=== PATIENT | male | born 1975 | race Caucasian/White ===

== ENCOUNTER 2020-09-28 09:43 | Outpatient (REF) | payer MEDICAID, SELFPAY ==
--- NOTE | ~2020-09-28 | CT_ITS ---
EXAMINATION: CT CHEST WITH CONTRAST CLINICAL INFORMATION: Lymphadenopathy. COMPARISON: CT dated 07/21/2018 and 10/01/2017. Chest radiograph dated 06/07/2019. TECHNIQUE: Multidetector volumetric CT imaging of the chest was obtained after the administration of 65 mL of Omnipaque 350 intravenous contrast without immediate adverse reactions. Axial MIP volume rendering provided. Sagittal and coronal reformatted images were obtained. This CT examination was performed using dose optimization techniques as appropriate, variously including the following: *Automated exposure control *Adjustment of mA and/or kV according to patient size (this includes techniques or standardized protocols for targeted exams where dose is matched to indication/reason for exam; i.e. extremities or head) *Use of iterative reconstruction technique DLP: 251 mGy-cm FINDINGS: FORENSIC ECONOMIST: Rounded calcified pulmonary nodule over the left lung is unchanged. Lung volumes are borderline low. LUNGS: The 1.5 x 1.6 cm solid peripherally calcified nodule in the left mid lung is unchanged in size by my measurement as compared to 07/21/2018. Multiple additional calcified pulmonary nodules are identified. No suspicious noncalcified pulmonary nodules are identified. Central airways are clear. Mild dependent atelectasis. No airspace consolidation. MEDIASTINUM: Heart is normal in size. No pericardial effusion. No mediastinal adenopathy. Subcarinal lymph node measures 1 cm in short axis, unchanged from prior and within normal limits. Calcified lymph nodes are present in the left hilum. No hilar adenopathy. Thyroid gland is normal in size and attenuation. PLEURA: There is no pleural effusion. No pleural mass or thickening. AXILLA: No lymphadenopathy. UPPER ABDOMEN: A coarse dystrophic calcification is present within the right hepatic lobe posteriorly, unchanged. No suspicious hepatic lesions. No acute intra-abdominal abnormalities are identified. OSSEOUS STRUCTURES: Mild/moderate multilevel degenerative spondylosis is present in the thoracic spine. There is mild anterior wedging of vertebral bodies at the T11 and T12 levels. No acute osseous findings. CT/CT chest w con IMPRESSION: 1. No acute pulmonary findings. 2. No mediastinal or hilar adenopathy. Subcarinal lymph node is unchanged from prior and within normal limits in size. Calcified left hilar lymph nodes are again noted. 3. Multiple calcified pulmonary nodules measuring up to 1.6 cm in diameter, most consistent with prior granulomatous infection.
[2020-09-28] MEDS: iohexoL 350 MG/ML 100 ML INFUS..BTL IV (11:19)
== END 2020-09-28 09:44 | disposition home or self-care (01) ==
LOC: HO.CT 09:43
PROVIDERS: Visit Provider Internal Medicine
DX: R59.0 Localized enlarged lymph nodes (principal); R91.8 Other nonspecific abnormal finding of lung field
CPT/HCPCS: 71260; Q9967

== ENCOUNTER 2022-09-08 16:46 | Emergency (ER) | payer MEDICAID, SELFPAY ==
--- NOTE | ~2022-09-08 | CT_ITS ---
EXAMINATION: CT ABDOMEN AND PELVIS WITHOUT CONTRAST CLINICAL INFORMATION: Right flank pain. COMPARISON: CT of the abdomen and pelvis of 08/25/2017 and abdominal ultrasound of 12/09/2018. Selected images of the chest CT of 09/28/2020. TECHNIQUE: Multidetector volumetric imaging was performed from the superior aspect of the liver through the pubic symphysis. Sagittal and coronal reformatted images were obtained on the technologist's workstation. This CT examination was performed using dose optimization techniques as appropriate, variously including the following: *Automated exposure control *Adjustment of mA and/or kV according to patient size (this includes techniques or standardized protocols for targeted exams where dose is matched to indication/reason for exam; i.e. extremities or head) *Use of iterative reconstruction technique DLP: 1253 mGy-cm FINDINGS: LUNG BASES: Partially visualized nodular density measuring 0.8 cm (series 3, image 1) represents a portion of a calcified nodule seen in the inferior left upper lobe on CT scan of 09/28/2020. The lung bases are otherwise unremarkable. No pleural or pericardial effusion. LIVER, GALLBLADDER, AND BILIARY TREE: The liver is in upper limits of normal for size. Mild liver contour nodularity is noted concerning for cirrhotic morphology of the liver. No focal liver lesion within the limits of noncontrast study. A 0.7 cm coarse calcification is noted in the right hepatic lobe. No biliary ductal dilatation. The gallbladder is moderately contracted. No radiopaque gallstones are noted. No obvious pericholecystic inflammatory changes. PANCREAS: Unremarkable. SPLEEN: Unremarkable. ADRENAL GLANDS: Unremarkable. KIDNEYS AND URETERS: The kidneys are normal in size, shape and attenuation. A 0.4 cm nonobstructing calculus is noted in the lower pole of the right kidney. No additional radiopaque calculi are seen in the kidneys and ureters. No evidence of hydroureteronephrosis or perinephric stranding bilaterally. BLADDER: Underdistended and therefore not optimally evaluated; however, there is no evidence of radiopaque calculi. GASTROINTESTINAL TRACT: The stomach is significantly distended with ingested material. No abnormal small bowel dilatation. The colon is normal in caliber. No evidence of colonic wall thickening or pericolonic fat stranding. Mrbaxrfi-rz-mltde stool burden in the colon. An appendix is normal. PERITONEUM AND RETROPERITONEUM: There is no evidence of free intraperitoneal air or fluid. Mild stranding is noted in the right paracolic gutter inferior to the inferior tip of the liver (series 3, image 42 of 102, series 7, image 65); this is a nonspecific finding. ABDOMINAL WALL: No significant hernia is appreciated. LYMPH NODES: No evidence of pathologically-enlarged lymph nodes. VASCULAR: The aortoiliac vessels are normal in caliber. Minimal calcific atherosclerosis of the distal aorta and iliac arteries. PELVIC VISCERA: Unremarkable. OSSEOUS STRUCTURES: No acute or suspicious osseous lesions. Multilevel degenerative changes in the visualized spine. CT/CT abdomen pelvis wo IV con IMPRESSION: 1. A 0.4 cm nonobstructing calculus in the lower pole of the right kidney. No additional radiopaque urinary tract calculi are noted. No evidence of hydroureteronephrosis or perinephric stranding bilaterally. 2. Normal appendix. 3. Rpcqsttd-yo-ivdvg stool burden in the colon. No evidence of abnormal bowel dilatation or bowel obstruction. 4. Cirrhotic morphology of the liver. Mild stranding in the right paracolic gutter inferior to the inferior tip of the liver is a nonspecific finding and could be related to suspected cirrhosis. Recommend clinical correlation and correlation with lab values. 5. No acute or suspicious osseous lesions. 6. Multilevel degenerative changes in the visualized spine. Fleischner guidelines were followed.
[2022-09-08 16:51] VITALS: BP 160/74; PULSE 88; RESP 20; TEMP 37.2; O2SAT 95; BMI 54.6
--- NOTE | 2022-09-08 16:51 | ED_ITS ---
HPI - General Adult General Chief complaint: Abdominal Pain Stated complaint: right sided abd pain Time Seen by Provider: 09/08/22 21:32 Related Data Previous Rx's ?Medication ?Instructions ?Recorded polyethylene glycol 3350 17 17 g PO DAILY #119 grams 09/08/22 gram/dose oral powder (Miralax) Allergies Allergy/AdvReac Type Severity Reaction Status Date / Time No Known Allergies Allergy Unverified 02/25/20 17:10 [facility] Social History Social History Advance Directives: No Advance Directives Information Provided: No Physical Exam ED Vital Signs: BMI result Body Mass Index 54.6 Course Course Course Narrative: This is an RME: Additional HPI, ROS, PE not included below will be deferred to primary provider. 47-year-old male history of obesity presents with right-sided flank pain x2 days. Reports pain is severe in nature, nonradiating. Denies urinary symptoms, fevers, chills, nausea, vomiting, abdominal pain, changes in bowel habits, chest pain, shortness of breath. No trauma. On exam patient appears uncomfortable with discomfort with palpation to right flank region. Vital signs stable Plan labs, urine, abd and pelvis ct Medical Decision Making Lab Data 09/08/22 17:44 09/08/22 17:44 Labs: Lab Results 09/08/22 09/08/22 Range/Units 17:44 21:42 WBC 9.9 (4.8-10.8) X10*3/uL RBC 5.21 (4.60-5.80) X10*6/uL Hgb 13.7 L (14.0-18.0) g/dl Hct 42.4 (42.0-52.0) % MCV 81.4 (80.0-98.0) fL MCH 26.3 L (27.0-33.0) pg MCHC 32.3 (31.0-36.0) g/dl RDW 13.6 (11.0-16.0) % Plt Count 148 L (160-400) X10*3/uL MPV 12.3 (9.4-12.4) fL Immature Gran % (Auto) 0.2 (0.0-0.4) % Neut % (Auto) 66.9 (45-73) % Lymph % (Auto) 21.1 (20-40) % [place] % (Auto) 8.0 (2-11) % Eos % (Auto) 3.5 (0-4) % Baso % (Auto) 0.3 (0-2) % Lymph # (Auto) 2.1 (1.2-4.9) X10*3/uL [place] # (Auto) 0.8 (0.1-1.2) X10*3/uL Eos # (Auto) 0.4 (0.0-0.4) X10*3/uL Baso # (Auto) 0.0 (0.0-0.2) X10*3/uL Abs Immat Gran (auto) 0.02 (0.00-0.03) X10*3/uL Absolute Neuts (auto) 6.6 (2.0-8.3) x10*3/uL Absolute Nucleated RBC 0.000 (0.0-0.012) X10*3/uL Nucleated RBC % (auto) 0.0 (0.0-0.2) /100WBC Sodium 138 (135-145) mmol/L Potassium 4.4 (3.3-5.1) mmol/L Chloride 101 (96-108) mmol/L Carbon Dioxide 29 (22-29) mmol/L Anion Gap 12 (12-20) BUN 18 H (9-16) mg/dL Creatinine 1.00 (0.5-1.4) mg/dL Estim Creat Clear Calc 115.1 Estimated GFR > 60 Random Glucose 123 H (60-115) mg/dL Calcium 9.3 (8.4-10.2) mg/dL Magnesium 2.0 (1.6-2.6) mg/dL Total Bilirubin 0.6 (0.0-1.0) mg/dL AST 19 (5-37) U/L ALT 19 (0-40) U/L Alkaline Phosphatase 100 (39-117) U/L Total Protein 7.6 (6.5-8.0) g/dL Albumin 4.1 (3.5-5.0) g/dL Lipase 16 (8-78) U/L Urine Color Yellow Urine Appearance Clear Urine pH 7.0 (5.0-9.0) Ur Specific [place] 1.015 (1.005-1.025) Urine Protein Negative (Neg-Trace) mg/dL Urine Glucose (UA) Negative (Negative) mg/dL Urine Ketones Negative (Negative) mg/dL Urine Blood Negative (Negative) Urine Nitrite Negative (Negative) Ur Leukocyte Esterase Negative (Negative) Discharge Plan Discharge Clinical Impression: Abdominal pain, Constipation Patient Disposition: Home, Self-Care Instructions: Constipation (DC), Acute Abdominal Pain (DC) Prescriptions: New polyethylene glycol 3350 [Miralax] 17 gram/dose powder 17 g PO DAILY Qty: 119 0RF Referrals: Physician,None [Primary Care Provider] - Interventions: ED Discharge Assessment Last Done: 09/09/22 00:42 Discharge Date/Time: 09/09/22 00:43 Print Language: Chinese
[2022-09-08 17:48] LABS: MANUAL DIFF FLAG NO
[2022-09-08 17:49] LABS: Basophils Percent Auto 0.3 % (0-2); Eosinophils Absolute Auto 0.4 X10*3/uL (0.0-0.4); Eosinophils Percent Auto 3.5 % (0-4); Hematocrit 42.4 % (42.0-52.0); Hemoglobin 13.7 g/dl (14.0-18.0); Imm Gran Abs Auto 0.02 X10*3/uL (0.00-0.03); Imm Gran Pct Auto 0.2 % (0.0-0.4); Lymphocytes Absolute Auto 2.1 X10*3/uL (1.2-4.9); Lymphocytes Percent Auto 21.1 % (20-40); Mean Corpuscular HGB Conc 32.3 g/dl (31.0-36.0); Mean Corpuscular Hemoglobin 26.3 pg (27.0-33.0); Mean Corpuscular Volume 81.4 fL (80.0-98.0); Mean Platelet Volume 12.3 fL (9.4-12.4); Monocytes Absolute Auto 0.8 X10*3/uL (0.1-1.2); Neutrophils Absolute Auto 6.6 x10*3/uL (2.0-8.3); Neutrophils Percent Auto 66.9 % (45-73); Platelet Count 148 X10*3/uL (160-400); Red Blood Count 5.21 X10*6/uL (4.60-5.80); Red Cell Distribution Width 13.6 % (11.0-16.0); White Blood Count 9.9 X10*3/uL (4.8-10.8)
[2022-09-08 18:11] LABS: Alanine Aminotransferase 19 U/L (0-40); Albumin Level 4.1 g/dL (3.5-5.0); Alkaline Phosphatase 100 U/L (39-117); Anion Gap 12 (12-20); Aspartate Amino Transferase 19 U/L (5-37); Bilirubin Total 0.6 mg/dL (0.0-1.0); Blood Urea Nitrogen 18 mg/dL (9-16); Calcium 9.3 mg/dL (8.4-10.2); Carbon Dioxide 29 mmol/L (22-29); Chloride 101 mmol/L (96-108); Creatinine Clr Calc Pharmacy 115.1; Estimated Glomerular Filt Rate > 60; Glucose Random 123 mg/dL (60-115); Lipase 16 U/L (8-78); Potassium 4.4 mmol/L (3.3-5.1); Sodium 138 mmol/L (135-145); Total Protein 7.6 g/dL (6.5-8.0)
[2022-09-08 21:49] LABS: Appearance Urine Clear; Color Urine Yellow; Glucose Urine UA Negative (Negative); Leukocyte Esterase Urine Negative (Negative); Nitrite Urine Negative (Negative); Specific Gravity - Urine 1.015 (1.005-1.025); Urine Blood Negative (Negative); Urine Ketones Negative (Negative); Urine Protein Negative (Neg-Trace)
--- NOTE | 2022-09-08 22:45 | ED_ITS ---
HPI - Abdominal Pain General Chief Complaint: Abdominal Pain Stated Complaint: right sided abd pain Time Seen by Provider: 09/08/22 21:32 History of Present Illness HPI narrative: Patient is 39 years old presents today with having abdominal pains for the last 2 days over the right flank area. Positive fullness. There is no bowel urinary incontinence. There is no fever no chills. No pain on urination. No history of kidney stones in the past. Patient is from home. Denies having a good bowel movement for last 2 days. Is passing gas. No abdominal surgery done in the past. Related Data Previous Rx's Medication Instructions Recorded polyethylene glycol 3350 17 17 g PO DAILY #119 grams 09/08/22 gram/dose oral powder (Miralax) Allergies Allergy/AdvReac Type Severity Reaction Status Date / Time No Known Allergies Allergy Unverified 02/25/20 17:10 Review of Systems Review of Systems Positive abdominal pain on the right side Yes all other systems are reviewed and are negative [facility] Past Medical History Attestation statement: The following information was validated with the patient. Social History Social History Advance Directives: No Advance Directives Information Provided: No Physical Exam ED Vital Signs: Vital Signs - 24 hr 09/08/22 16:51 Temperature 98.9 F Pulse Rate 88 Respiratory Rate 20 Blood Pressure 160/74 H Pulse Oximetry 95 Oxygen Delivery Method Room Air BMI result Body Mass Index 54.6 Appearance: Alert. Oriented X3. No acute distress. Eyes: Pupils equal, round and reactive to light. ENT: Pharynx normal. Neck: Normal inspection. Neck supple. No lymph nodes noted. No crepitus CVS: Normal heart rate and rhythm. Pulses normal. Normal S1 and S2 Respiratory: No respiratory distress. Breath sounds normal. No Wheezing. No rales Abdomen: Soft and nontender. No rigidity. No distention. good BS x4 Skin: Skin warm and dry. Normal skin color. Normal skin turgor. Extremities: No lower extremity edema. Neurovascular intact to all extremities. No Lacerations. No Rash Neuro: Oriented X 3. No motor deficit. No sensory deficit. Moving all extermities. No slurred speech Medical Decision Making Medical Decision Making MDM Narrative: Patient's lab showed a normal white count. LFTs were normal. Electrolytes unremarkable. There is no evidence of biliary disease. CT scan of the abdomen pelvis showed no evidence of obstruction, abscess, perforation. It did show signs of a large amount of stool. Patient most likely constipated. Will prescribe patient has some MiraLax. There is no evidence for abdominal aortic aneurysm. Patient's urine is negative for infection. Patient is well- appearing. Will discharge patient home. Differential Diagnosis Differential Diagnoses: The differential diagnosis associated with the presentation includes Obstruction, abscess, perforation, appendicitis, diverticulitis, AAA, constipation Lab Data MDM Lab Attestation statement: I reviewed the patient's lab results. 09/08/22 17:44 09/08/22 17:44 Labs: Lab Results 09/08/22 09/08/22 09/08/22 Range/Units 17:44 17:44 21:42 WBC 9.9 (4.8-10.8) X10*3/uL RBC 5.21 (4.60-5.80) X10*6/uL Hgb 13.7 L (14.0-18.0) g/dl Hct 42.4 (42.0-52.0) % MCV 81.4 (80.0-98.0) fL MCH 26.3 L (27.0-33.0) pg MCHC 32.3 (31.0-36.0) g/dl RDW 13.6 (11.0-16.0) % Plt Count 148 L (160-400) X10*3/uL MPV 12.3 (9.4-12.4) fL Immature Gran % (Auto) 0.2 (0.0-0.4) % Neut % (Auto) 66.9 (45-73) % Lymph % (Auto) 21.1 (20-40) % [place] % (Auto) 8.0 (2-11) % Eos % (Auto) 3.5 (0-4) % Baso % (Auto) 0.3 (0-2) % Lymph # (Auto) 2.1 (1.2-4.9) X10*3/uL [place] # (Auto) 0.8 (0.1-1.2) X10*3/uL Eos # (Auto) 0.4 (0.0-0.4) X10*3/uL Baso # (Auto) 0.0 (0.0-0.2) X10*3/uL Abs Immat Gran (auto) 0.02 (0.00-0.03) X10*3/uL Absolute Neuts (auto) 6.6 (2.0-8.3) x10*3/uL Absolute Nucleated RBC 0.000 (0.0-0.012) X10*3/uL Nucleated RBC % (auto) 0.0 (0.0-0.2) /100WBC Sodium 138 (135-145) mmol/L Potassium 4.4 (3.3-5.1) mmol/L Chloride 101 (96-108) mmol/L Carbon Dioxide 29 (22-29) mmol/L Anion Gap 12 (12-20) BUN 18 H (9-16) mg/dL Creatinine 1.00 (0.5-1.4) mg/dL Estim Creat Clear Calc 115.1 Estimated GFR > 60 Random Glucose 123 H (60-115) mg/dL Calcium 9.3 (8.4-10.2) mg/dL Magnesium 2.0 (1.6-2.6) mg/dL Total Bilirubin 0.6 (0.0-1.0) mg/dL AST 19 (5-37) U/L ALT 19 (0-40) U/L Alkaline Phosphatase 100 (39-117) U/L Total Protein 7.6 (6.5-8.0) g/dL Albumin 4.1 (3.5-5.0) g/dL Lipase 16 (8-78) U/L Urine Color Yellow Urine Appearance Clear Urine pH 7.0 (5.0-9.0) Ur Specific [place] 1.015 (1.005-1.025) Urine Protein Negative (Neg-Trace) mg/dL Urine Glucose (UA) Negative (Negative) mg/dL Urine Ketones Negative (Negative) mg/dL Urine Blood Negative (Negative) Urine Nitrite Negative (Negative) Ur Leukocyte Esterase Negative (Negative) Discharge Plan Discharge Clinical Impression: Abdominal pain, Constipation Patient Disposition: Home, Self-Care Instructions: Constipation (DC), Acute Abdominal Pain (DC) Prescriptions: New polyethylene glycol 3350 [Miralax] 17 gram/dose powder 17 g PO DAILY Qty: 119 0RF Referrals: Physician,None [Primary Care Provider] - Print Language: Faroese
--- NOTE | 2022-09-09 00:40 | PC.NURSE ---
pt a&o, nos sob or chest pain, pt assess and discharge per provider, This Rn reviewed discharge instructions with pt, pt verbalized understanding. Pt reports receiving medications by the covering nurse.
== END 2022-09-09 00:43 | disposition home or self-care (01) ==
PROVIDERS: Physician Assistant; Emergency Provider Emergency Medicine Emergency Medical Services
DX: K59.00 Constipation, unspecified (principal); R10.9 Unspecified abdominal pain
CPT/HCPCS: 36415; 74176; 80053; 81003; 83690; 83735; 85025; 99282; 99284

== ENCOUNTER 2025-03-30 13:30 | Emergency (ER) | payer MEDICAID, SELFPAY ==
--- NOTE | ~2025-03-30 | XR_ITS ---
EXAMINATION: XR CHEST CLINICAL INFORMATION: cough COMPARISON: 06/07/2019. TECHNIQUE: 2 views of the chest were obtained. FINDINGS: The cardiac, hilar, and mediastinal contours are normal. Lungs demonstrate an unchanged peripherally calcified 1.6 cm nodule in the left midlung, known to represent a benign granuloma. Lungs are otherwise clear. There is no pneumothorax or pleural effusion. There is no focal osseous or soft tissue abnormality. XR/XR chest 2V IMPRESSION: No active pulmonary disease. No interval change from 06/07/2019. Electronically signed by: David Valdez MD 03/30/2025 02:53 PM EDT
--- NOTE | ~2025-03-30 | XR_ITS ---
EXAMINATION: XR LUMBOSACRAL SPINE CLINICAL INFORMATION: pain COMPARISON: July 27, 2015 TECHNIQUE: AP and lateral views FINDINGS: Multilevel marginal osteophyte formation and endplate sclerosis and decreased intervertebral disc height lower thoracic and lumbar spine. 20% volume loss compression deformity likely old in the vertebral bodies of the lower thoracic spine. No acute cortical disruption. No gross malalignment. No lytic or blastic lesions. XR/XR lumbar spine 2-3V IMPRESSION: Multilevel thoracolumbar spondylosis. Electronically signed by: Lazaro Hernandez MD 03/30/2025 02:50 PM EDT
[2025-03-30 14:11] VITALS: BP 159/76; PULSE 60; RESP 16; TEMP 36.4; O2SAT 98; BMI 46.2
--- NOTE | 2025-03-30 14:11 | ED_ITS ---
HPI - General Adult General Chief complaint: Back Pain/Injury Stated complaint: Back pain rad to legs, cough Time Seen by Provider: 03/30/25 17:04 History of Present Illness ED Provider: Chandler Dill MD HPI narrative: Patient presents with atraumatic right low back pain radiating down the buttock to the hamstring region for several days also reports mild dry cough with no phlegm production. Denies fever hemoptysis. No leg swelling. No prior diagnos ed sciatica lumbar rate a radiculopathy. No numbness tingling weakness or urinary incontinence patient has been able to ambulate well denies dyspnea on exertion or chest pain Related Data Previous Rx's ?Medication ?Instructions ?Recorded polyethylene glycol 3350 17 17 g PO DAILY #119 grams 0 09/08/22 gram/dose oral powder (Miralax) Allergies Allergy/AdvReac Type Severity Reaction Status Date / Time No Known Allergies Allergy Unverified 03/30/25 14:12 [facility] Social History Social History Advance Directives: No Advance Directives Information Provided: No Physical Exam ED Exam Exam: EXAM: Gen: Alert, awake, well appearing, well hydrated. Morbidly obese resting comfortably Head: Atraumatic Eyes: Anicteric, Normal conjunctiva. ENT: Moist mucosa, no pallor. ? Neck: Supple. Skin: ?No observable rash or bruising on exposed or examined skin Respiratory: Breathing comfortably, No distress.Clear to auscultation bilaterally, symmetric chest expansion, No wheeze, rales, ronchi. Cardiovascular: Regular rate and rhythm. No murmurs or rub. Well perfused periphery, warm extremities. No edema. ? Abdominal: No focal tenderness. Soft, no objective distension. No palpable masses or obvious organomegaly. ?No guarding, no rebound tenderness or other peritoneal findings. : No flank tenderness. Neuro: Alert. Gross movement of all extremities intact. ?5/5 strength in legs able to walk with steady gait. Sensation intact to light touch throughout. Psych: Calm. Cooperative. MSK: No grossly visible deformity. Mild tenderness right lumbosacral region. No bruising of the back no step-off no midline tenderness right superior buttock slightly tender Vital signs: See flowsheet Vital Signs: Vital Signs - 24 hr 03/30/25 14:11 Temperature 97.6 F Pulse Rate 60 Respiratory Rate 16 Blood Pressure 159/76 H Pulse Oximetry 98 Oxygen Delivery Method Room Air BMI result Body Mass Index 46.2 Course Course Course Narrative: RME, this is a rapid medical exam performed by Kali Aranda please refer to primary provider for complete H&P- 49-year-old male presents for evaluation of lower back pain and a cough. He denies any falls or specific injury. He has been coughing for the last 2-3 days. Denies any fevers or chills. He reports his pain is an 8/10. Plan for chest x-ray, viral swabs Medications Administered Discontinued Medications Generic Name Dose Route Start Last Admin Trade Name Freq PRN Reason Stop Dose Admin Dexamethasone 10 mg 03/30/25 17:25 03/30/25 17:50 Dexamethasone 2 Mg Tablet PO 03/30/25 17:26 10 mg ONCE ONE Administration Ibuprofen 800 mg 03/30/25 17:25 03/30/25 17:50 Ibuprofen 800 Mg Tablet PO 03/30/25 17:26 800 mg ONCE ONE Administration Medical Decision Making Medical Decision Making MDM Narrative: Medical Decision Makin-year-old male with sciatic type pain without red flag signs or symptoms to suggest acute central neural compression. Ambulatory and comfortable. No IV drug use or fever to suggest infectious etiology. Likely disc herniation and/or piriformis. The patient also complained of cough. Chest x-ray is clear in his lungs are clear. He has no hypoxia tachypnea or respiratory distress on examination. Preliminary Favored Differential Diagnosis: Sciatica/lumbar radiculopathy, URI bronchitis pneumonia among additional considered etiologies Testing Interpreted Independently: ?See below for details Radiology or Lab testing Results Reviewed: ?See below for details Consults: ?See below for details Independent Historians/External Chart Reviews: ?See below for details Social Determinants of Health Impacting MDM/Planning: ?See below for details Discharge Plan Discharge Clinical Impression: Lumbar radiculopathy, Strain of lumbar region Patient Disposition: Home, Self-Care Instructions: Upper Respiratory Infection (DC), Lumbar Radiculopathy (ED), Back Pain (ED), Lower Back Exercises (ED) Additional Instructions: DISCHARGE DIAGNOSES: Low back pain likely sciatica Upper respiratory infection probably viral no sign of pneumonia HISTORY OF PRESENTATION: Low back pain and cough EMERGENCY DEPARTMENT COURSE,TESTS, TREATMENTS: While in the ED today you had no fever and your vitals were stable you had an x-ray of your chest low back vaccine findings DISCHARGE MEDICATIONS: ?[We have made no changes to your regular medication regimen] FOLLOW-UP: ?Call your primary or general physician soon as possible to discuss your symptoms, your ED visit and to discuss follow up plans Call your primary doctor for follow up instructed him that we gave you a single dose of dexamethasone steroid for low back pain probably sciatica INSTRUCTIONS ?& RETURN PRECAUTIONS: If any symptoms change first call your prima ry physician, if it is after-hours your primary doctors office should have a provider thoracic surgeon you can speak with. If the symptoms are severe or very concerning to you then call 911 or return to the ED. Chandler Dill MD Emergency Physician [facility] Prescriptions: No Action polyethylene glycol 3350 [Miralax] 17 gram/dose powder 17 g PO DAILY Qty: 119 0RF Discharge Date/Time: 03/30/25 17:57 Print Language: Georgian
--- OUTSIDE RECORDS SUMMARY | 2025-03-30 21:13 | XMS_ITS | Encounter Summary ---
Author Organization [employer] Address [address] [facility] [address] [place] [address] Care Team Providers Care Teletypewriter Operator Name Role Phone Unavailable Primary Care Provider Unavailabl e Encounter Details Date Type Department Care Team ([facility] st Contact Info) Description 09/05/2022 Abstract [facility] ADULT DENTAL [address] [place] [address] Lyndon Huntaris [address] [place] [address] Social History Tobacco Use Types Packs/Day Years Used Date Smoking Tobacco: Former Cigarettes 2 20 0 06/10/1992 - 06/10/2012 Alcohol Use Standard Drinks/Week Comments Not Currently 0 (1 standard drink = 0.6 oz pur e alcohol) Sex and Gender Information Value Date Recorded Sex Assigned at Male 04/09/2022 10:17 AM EDT Legal Sex Male 10:17 AM EDT Gender Identity Male 04/09/2022 10:17 AM EDT Sexual Orientation Straight 04/09/2022 10 :17 AM EDT COVID-19 Exposure Response Date Recorded In the last 10 days, have yo u been in contact with someone who was confirmed or suspected to have Coronavirus/COVID-19? No / Unsure 08/22/2022 1:45 PM EDT documented as of this encounter Plan of Treatment Not on file documented as of this encounter Visit Diagnoses Not on filedocumented in this encounter
--- OUTSIDE RECORDS SUMMARY | 2025-03-30 21:13 | XMS_ITS | Encounter Summary ---
Author Organization [employer] Address [address] [place] [address] Care Team Providers Care Cafeteria Associate Name Role Phone Unavailable Primary Care Provider Unavailabl e Encounter Details Date Type Department Care Team ([facility] st Contact Info) Description 08/10/2022 Abstract [facility] D[facility]AL [address] [place] [address] Clinton Cheng, DMD [address] [place] [address] Social History Tobacco Use Types Packs/Day Years Used Date Smoking Tobacco: Never Assessed Sex and Gender Information Value Date Recorded [...] suspected to have Coronavirus/COVID-19? No / Unsure 08/03/2022 8:52 AM EST documented as of this encounter Plan of Treatment Not on file documented as of this encounter Visit Diagnoses Not on filedocumented in this encounter
--- OUTSIDE RECORDS SUMMARY | 2025-03-30 21:13 | XMS_ITS | Encounter Summary ---
Author Organization [employer] Address [address] [place] [address] Care Team Providers Care Planning Division Superintendent Name Role Phone Unavailable Primary Care Provider Unavailabl e Encounter Details Date Type Department Care Team ([facility] st Contact Info) Description 08/10/2022 Abstract [facility] ADULT DENTAL [address] [place] [address] Clinton Cheng, DMD [address] [place] [address] Social History Tobacco Use Types Packs/Day Years [...]
--- OUTSIDE RECORDS SUMMARY | 2025-03-30 21:13 | XMS_ITS | Encounter Summary ---
Author Organization [employer] Address [address] [place] [address] Care Team Providers Care Loading Unit Operator Name Role Phone Unavailable Primary Care Provider Unavailabl e Encounter Details Date Type Department Care Team ([facility] st Contact Info) Description 09/17/2022 Abstract [facility] ADULT DENTAL [address] [place] [address] Lyndon Huntaris [address] [place] [address] Social History Tobacco Use Types Packs/Day Years [...] suspected to have Coronavirus/COVID-19? No / Unsure 09/19/2022 1:51 PM EDT documented as of this encounter Plan of Treatment Not on file documented as of this encounter Visit Diagnoses Not on filedocumented in this encounter
--- OUTSIDE RECORDS SUMMARY | 2025-03-30 21:13 | XMS_ITS | Clinical Summary ---
Author Organization [employer] Address [address] [facility] [address] [place] [address] Care Team Providers Care Subgrade Tester Name Role Phone Unavailable Primary Care Provider Unavailabl e Allergies No known active allergies Medications ibuprofen 600 MG tabletIndication s:Acute periodontal abscess Take 1 tablet (600 mg) by mouth every 6 (six) hours if needed for mild pain for up to 20 doses. 20 tablet 08/03/2022 Active Active Problems Problem Noted Date Diagnosed Date Dental calculus 09/19/2022 Social History Tobacco Use Types Packs/Day Years Used Date Smoking Tobacco: Former Cigarettes 2 20 0 06/10/1992 - 06/10/2012 Smokeless Tobacco: Never Tobacco Cessation:Counseling Given: Not Answered Alcohol Use Standard Drinks/Week Comments Not Currently 0 (1 standard drink = 0.6 oz pur e alcohol) Sex and Gender Information Value Date Recorded Sex Assigned at Male 04/09/2022 10:17 AM EDT Legal Sex Male 10:17 AM EDT Gender Identity Male 04/09/2022 10:17 AM EDT Sexual Orientation Straight 04/09/2022 10 :17 AM EDT Last Filed Vital Signs Vital Sign Reading Time Taken Comments Blood Pressure 134/76 09/19/2022 2:09 PM EDT Pulse 78 09/19/2022 2:09 PM EDT Temperature - - Respiratory Rate - - Oxygen Saturation - - Inhaled Oxygen Concentration - - Weight - - Height - - Body Mass Index - - Plan of Treatment Health Maintenance Due Date Last Done Comments CT Colonography 1974 Colonoscopy 1974 Colorectal Cancer Screening 1974 Dental Prophylaxis 1974 Depression Screening 1974 FIT DNA/Cologuard 1974 FIT 1974 FOBT 1974 HIV Screening 1974 Lipid Panel 1974 SDOH Screening 1974 Sigmoidoscopy 1974 Disability Screening 1974 Alcohol/Substance Use Screening 1986 Family Planning (PISQ) 1989 Dental Oral Exam 02/23/2023 08/22/2022 Dental X-Ray: Bitewings 08/24/2023 08/22/2022 Tobacco Screening 09/20/2023 09/19/2022 Lung Cancer Screening 2024 Pneumococcal Vaccine: 50+ Years (2 of 2 - PCV) 2024 05/26/2012 Zoster Vaccines (1 of 2) 2024 COVID-19 Vaccine (3 - season) 2025 11/10/2020, 10/13/2020 Influenza Vaccine (#1) 2025 9, 07/11/2017, 06/16/2015, Additional history exists Dental X-Ray: Full Mouth 08/23/2025 08/22/2022 DTaP/Tdap/Td Vaccines (3 - Td or Tdap) 09/23/2028 09/23/2018, 03/31/2012, 06/14/2008 RSV Patients and Patients Aged 60 years or older (1 - 1-dose 75+ series) 2049 Hepatitis A Vaccines Completed 01/29/2012, 11/16/19 Hepatitis B Vaccines Completed 01/29/2012, 12/16/2003, 11/16/2003 HIB Vaccines Aged Out No longer eligi ble based on patient's age to complete this topic HPV Vaccines Aged Out No longer eligi ble based on patient's age to complete this topic IPV Vaccines Aged Out No longer eligi ble based on patient's age to complete this topic Meningococcal B Vaccine Aged Out No l onger eligible based on patient's age to complete this topic Meningococcal Vaccine Aged Out No jelani noris eligible based on patient's age to complete this topic RSV under 20 months Aged Out No longe r eligible based on patient's age to complete this topic Rotavirus Vaccines Aged Out No longer eligible based on patient's age to complete this topic Procedures Procedure Name Priority Date/Time Associated Diagnosis Comments INTRAORAL - COMPLETE SERIES OF RADIOGRAPHIC IMAGES Routine 08/22/2022 1:45 PM EDT Periodontal disease PERIODIC ORAL EVALUATION - ESTABLISHED PATIENT Routine 08/22/2022 1:45 PM EDT Periodontal disease from Last 3 Months or Most Recently Relevant to Health Maintenance Insurance [facility] MEDICAID STAND ADULT
--- OUTSIDE RECORDS SUMMARY | 2025-03-30 21:13 | XMS_ITS | Encounter Summary ---
Author Organization [employer] Address [address] [facility] [address] [place] [address] Care Team Providers Care Computer Help Desk Representative Name Role Phone Unavailable Primary Care Provider Unavailabl e Encounter Details Date Type Department Care Team (Latest Contact Info) Description 11/20/2018 Abstract [facility] CONVERSIONS Dental, Provider, DDS Social History Tobacco Use Types Packs/Day Years Used Date Smoking Tobacco: Never Assessed Sex and Gender Information Value Date Recorded Sex Assigned at Male 04/09/2022 10:17 AM EDT Legal Sex Male 10:17 AM EDT Gender Identity Male 04/09/2022 10:17 AM EDT Sexual Orientation Straight 04/09/2022 10 :17 AM EDT documented as of this encounter Plan of Treatment Not on file documented as of this encounter Visit Diagnoses Not on filedocumented in this encounter
--- OUTSIDE RECORDS SUMMARY | 2025-03-30 21:14 | XMS_ITS | Clinical Summary ---
Author Organization [employer] [facility] it[facility] Address [address] [place] [address] Care Team Providers Care Manager Commercial Name Role Phone Unavailable Primary Care Provider Unavailabl e Social History Tobacco Use Types Packs/Day Years Used Date Smoking Tobacco: Never Assessed Sex and Gender Information Value Date Recorded Sex Assigned at Not on file Legal Sex Male 8:54 PM EST Gender Identity Not on file Sexual Orientation Not on file Plan of Treatment Health Maintenance Due Date Last Done Comments Colorectal Cancer Screening: Colonoscopy 1974 DTaP,Tdap,and Td Vaccines (1 - Tdap) 1993 Hepatitis B Vaccines (1 of 3 - 19+ 3-dose series) 1993 Cholesterol Screening (Lipid Panel) 07/05/2023 HIV Screening 07/05/2023 Hepatitis C Screening 07/05/2023 Social Influencers of Health Screening 07/05/2023 Depression Screening 06/10/2024 Pneumococcal Vaccine: 50+ Ye ars (1 of 1 - PCV) 2024 Zoster Vaccines (1 of 2) 2024 COVID-19 Vaccine (1 - 2023-2 5 season) 2025 Influenza Vaccine (#1) 2025 RSV Immunization Adult Patie nts (1 - 1-dose 75+ series) 2049 HIB Vaccines Aged Out No longer eligi ble based on patient's age to complete this topic HPV Vaccines Aged Out No longer eligi ble based on patient's age to complete this topic Hepatitis A Vaccines Aged Out No long er eligible based on patient's age to complete this topic IPV Vaccines Aged Out No longer eligi ble based on patient's age to complete this topic MMR Vaccines Aged Out No longer eligi ble based on patient's age to complete this topic Meningococcal ACWY Vaccine Aged Out N o longer eligible based on patient's age to complete this topic Meningococcal B Vaccine Aged Out No l onger eligible based on patient's age to complete this topic RSV Immunization Patients Un fatuma 20 months Aged Out No longer eligible b ased on patient's age to complete this topic Varicella Vaccines Aged Out No longer eligible based on patient's age to complete this topic
--- OUTSIDE RECORDS SUMMARY | 2025-03-30 21:14 | XMS_ITS | Patient Health Record ---
Author Organization [facility] Address [address] [place] [id number] Care Team Providers Care Grease Remover Name Role Phone Lobo Stevenson Lida [phone] Reason For Referral No Information Plan Of Treatment No Information
== END 2025-03-30 17:57 | disposition home or self-care (01) ==
PROVIDERS: Emergency Provider Emergency Medicine; PCP Internal Medicine
DX: M54.16 Radiculopathy, lumbar region (principal); R05.9 Cough, unspecified
CPT/HCPCS: 71046; 72100; 99282; 99283; J8540

== ENCOUNTER → 2025-03-30 14:11 | Outpatient (BNV) | payer MEDICAID, SELFPAY | PROVIDERS: PCP Internal Medicine; Visit Provider Radiology Diagnostic Radiology | DX: M54.50 Low back pain, unspecified (principal); M47.815 Spondylosis without myelopathy or radiculopathy, thoracolumbar region; R05.9 Cough, unspecified | CPT/HCPCS: 71046; 72100 ==

== ENCOUNTER 2025-05-21 11:45 | Outpatient (REF) | payer MEDICAID, SELFPAY ==
[2025-05-21 12:00] LABS: MANUAL DIFF FLAG NO
[2025-05-21 14:04] LABS: Hematocrit 43.6 % (42.0-52.0); Hemoglobin 14.3 g/dl (14.0-18.0); Imm Gran Abs Auto 0.01 X10*3/uL (0.00-0.03); Imm Gran Pct Auto 0.2 % (0.0-0.4); Lymphocytes Absolute Auto 1.7 X10*3/uL (1.2-4.9); Mean Corpuscular HGB Conc 32.8 g/dl (31.0-36.0); Mean Corpuscular Hemoglobin 27.6 pg (27.0-33.0); Mean Corpuscular Volume 84.0 fL (80.0-98.0); NRBC Abs Auto 0.000 X10*3/uL (0.0-0.012); NRBC Pct Auto 0.0 /100WBC (0.0-0.2); Platelet Count 107 X10*3/uL (160-400); Red Blood Count 5.19 X10*6/uL (4.60-5.80); White Blood Count 5.2 X10*3/uL (4.8-10.8)
[2025-05-21 14:38] LABS: Alanine Aminotransferase 27 U/L (0-40); Albumin Level 4.6 g/dL (3.5-5.0); Alkaline Phosphatase 79 U/L (39-117); Anion Gap 14 (12-20); Aspartate Amino Transferase 34 U/L (5-37); Blood Urea Nitrogen 15 mg/dL (9-16); Calcium 9.5 mg/dL (8.4-10.2); Carbon Dioxide 26 mmol/L (22-29); Chloride 104 mmol/L (96-108); Cholesterol 200 mg/dL (<200); Estimated Glomerular Filt Rate > 60; HDL Cholesterol 45 mg/dL (>40); Potassium 4.9 mmol/L (3.3-5.1); Sodium 139 mmol/L (135-145); Total Protein 8.2 g/dL (6.5-8.0); Triglycerides 102 mg/dL (<150)
[2025-05-21 15:08] LABS: Prostate Specific Antigen 0.32 ng/mL (<0.05-4.0)
== END 2025-05-21 11:46 | disposition home or self-care (01) ==
LOC: HO.LAB 11:45
PROVIDERS: PCP Internal Medicine; Visit Provider Internal Medicine
DX: Z00.00 Encounter for general adult medical examination without abnormal findings (principal); I10 Essential (primary) hypertension; N40.0 Benign prostatic hyperplasia without lower urinary tract symptoms; B35.3 Tinea pedis; E66.01 Morbid (severe) obesity due to excess calories; Z86.0101 Personal history of adenomatous and serrated colon polyps
CPT/HCPCS: 36415; 80053; 80061; 83036; 84153; 85025